=== PATIENT | male | born 1950 | race Caucasian/White ===

== ENCOUNTER 2022-03-08 20:45 | Observation (INO) ==
[2022-03-08 21:14] LABS: Basophils # (auto) 0.01 K/uL (0-0.2); Basophils % (auto) 0.2 %; Eosinophils # (auto) 0.01 K/uL (0-0.50); Eosinophils % (auto) 0.2 %; Hematocrit (blood only) 30.7 % (40.1-51.0); Hemoglobin 10.6 g/dl (14.0-18.0); Immature Granulocytes # (auto) 0.15 K/uL (0.00-0.02); Immature Granulocytes % (auto) 2.3 %; Lymphocytes # (auto) 0.57 K/uL (1.2-3.4); Lymphocytes % (auto) 8.6 %; Mean Corpuscular Hemoglobin 29.7 pg (25.0-34.0); Mean Corpuscular Hgb Conc 34.5 g/dL (32.0-36.0); Mean Platelet Volume 9.2 fL (9.4-12.4); Monocytes # (auto) 1.54 K/uL (0.24-0.82); Monocytes % (auto) 23.1 %; Neutrophils # (auto) 4.38 K/uL (1.4-6.5); Neutrophils % (auto) 65.6 %; Platelet Count 202 K/uL (130-400); RDW Coefficient of Variation 11.9 % (11.5-14.5); RDW Standard Deviation 37.4 fL (36.4-46.3); Red Blood Count 3.57 M/uL (4.63-6.08); White Blood Count 6.66 K/ul (4.8-10.8)
[2022-03-08 21:24] LABS: Partial Thromboplastin Time 27.7 Seconds (21.0-31.0)
[2022-03-08 21:33] LABS: Troponin I High Sensitivity 4.2 pg/ml (0-20)
[2022-03-08 21:36] LABS: Albumin Globulin Ratio 1.1 (0.9-2); Albumin Level 3.9 gm/dl (3.4-5.0); Bilirubin,Total 0.4 mg/dl (0.2-1.0); Calcium 9.8 mg/dl (8.5-10.1); Creatinine Clr Calc Pharmacy 56.8 ml/min; Est GFR (African American) 77.3 ml/min; Est GFR (Non-African American) 66.7 ml/min; Globulin 3.5 gm/dl (2.5-4.0); Potassium 4.3 mmol/L (3.5-5.1); Total Protein 7.4 gm/dl (6.0-8.3)
[2022-03-08] MEDS ORDERED: SODIUM CHLORIDE 0.9% 1000ML 500 ML IV ONE (22:36)
[2022-03-08] MEDS ORDERED: ONDANSETRON INJ 2 MG/ML 2 ML VIAL IV STA (22:36)
[2022-03-08] MEDS ORDERED: MoRPHine SULFATE 4 MG/ML 1 ML CARP\\VIAL IV STA (22:36)
--- NOTE | 2022-03-09 01:50 | Emergency Department Note ---
History of Present Illness General Chief complaint: Back Injury/Pain Time Seen by Provider: 03/08/22 22:26 Source: patient Mode of arrival: EMS Limitations: no limitations History of Present Illness Maximum Pain Intensity: 3 This patient is a 71-year-old male who comes in after having back pain in his mid back in the area. This is his third or fourth visit he has had extensive work-up including CAT scans of his head and neck and CT angio of his head neck and chest. Apparently was more in the neck he said now it settled into the back. He has no significant headache at present he did not think he had a fever although he has a temperature he of 38 1. Denies cough or shortness of breath. No nausea vomiting no abdominal pain it hurts worse when he moves. No numbness or weakness of his legs. No change in bowel or bladder function. Home Medications Medication Instructions Recorded Confirmed Type levothyroxine 125 mcg tablet 62.5 mcg PO QAM 07/28/18 03/09/22 History (Synthroid) cholecalciferol (vitamin D3) 25 1,000 unit PO DAILY 06/03/19 03/09/22 History mcg (1,000 unit) chewable tablet (Vitamin D3) flaxseed oil 1,000 mg capsule 1,000 mg PO DAILY 06/03/19 03/09/22 History garlic 500 mg capsule 500 mg PO DAILY 06/03/19 03/09/22 History lactobacillus combination no.4 3 3 mmu cells PO DAILY 06/03/19 03/09/22 History billion cell capsule (Probiotic) lysine 500 mg tablet (L-Lysine) 500 mg PO DAILY 06/03/19 03/09/22 History multivitamin 1 tab PO DAILY 06/03/19 03/09/22 History vitamin A 2,400 mcg capsule 8,000 unit PO DAILY 06/03/19 03/09/22 History atorvastatin 20 mg tablet 20 mg PO DAILY 11/28/20 03/09/22 History ascorbate calcium (vitamin C) 500 500 mg PO DAILY 02/28/21 03/09/22 History mg tablet melatonin 5 mg capsule 5 mg PO HS PRN Sleep 02/28/21 03/09/22 History naproxen 250 mg tablet 250 mg PO BID PRN Pain 02/28/21 03/09/22 History vitamin B comp and C no.3 15 mg-10 1 cap PO DAILY 02/28/21 03/09/22 History mg-50 mg-5 mg-300 mg capsule (B Complex Plus Vitamin C) leuprolide (3 month) 22.5 mg (3 22.5 mg subcut ONCE Prostate 07/23/21 03/09/22 Rx month) subcutaneous syringe Cancer #1 ea vitamin E (dl, acetate) 180 mg 180 mg PO DAILY 09/11/21 03/09/22 History (400 unit) capsule leuprolide (3 month) 22.5 mg (3 22.5 mg subcut ONCE Prostate 10/09/21 03/09/22 Rx month) subcutaneous syringe Cancer #1 ea (Eligard) oxycodone 5 mg tablet 5 mg PO Q6H PRN pain #12 tabs 03/04/22 03/09/22 Rx cyclobenzaprine 5 mg tablet 5 mg PO TID PRN muscle spasm #9 03/06/22 03/09/22 Rx tabs magnesium chloride 64 mg 64 mg PO DAILY 03/09/22 03/09/22 History (magnesium chloride) tablet,delayed release zinc acetate 50 mg (zinc) capsule 50 mg PO DAILY 03/09/22 03/09/22 History Allergies Allergy/AdvReac Type Severity Reaction Status Date / Time Penicillins Allergy Severe Unknown Verified 03/09/22 07:15 house dust Allergy Intermediate Difficulty Verified 03/09/22 07:15 Breathing shellfish derived Allergy Intermediate HIVES Verified 03/09/22 07:15 cat dander Allergy Unknown Unknown Verified 03/09/22 07:15 Past Med/Surg History Medical History (Updated 03/09/22 @ 04:04 by Jesus Alberto Fletcher MD) Depression Elevated prostate specific antigen (PSA) Hyperlipidemia Hypothyroidism Inguinal hernia Right ureteral calculus Surgical History H/O colonoscopy History of biopsy (01/08/21) Prostate History of left inguinal hernia repair (01/2004) S/P right inguinal hernia repair (01/15/02) Family History Brother , Passed Age 83 Prostate cancer Father , Passed Age 74 Lung cancer Mother , Passed Age 96 No problems noted. Grandmother (Paternal) Colorectal cancer Sister , Passed Age 58 Mesothelioma Sister , Passed Age 57 No problems noted. Sister , Passed Age 84, Unknown Cancer No problems noted. Sister No problems noted. Other Has no children Social History Smoking Status: Current every day smoker Second Hand Exposure: No; Hx Alcohol Use: Yes Alcohol type: beer, wine and hard liquor Alcohol Intake F requency: 4 or More x per/Week Hx Substance Use: No Preferred Language: [place]i Visual Impairment: No Limitations Hearing Ability: Hard of Hearing It Manager Required: No Beliefs That Will Affect Care: None marital status: Current Living Situation: Spouse current occupational status: retired current occupation: Retired How many Children do You have: 0 Feels Safe at Home: Yes Childhood Exposure to Second-Hand Smoke: No caffeine: Yes (coffee daily) during the past year weight has: remained stable Dental Care, Regularly: No Assistive Devices: None Review of Systems A total of 10 systems reviewed and were otherwise negative Physical Exam Vital Signs Vital Signs - 24 hr 03/09/22 02:03 03/09/22 03:03 Temperature 37.1 C Temperature Source Oral Pulse Rate [Finger] 111 H 100 H Pulse Rhythm [Finger] Regular Pulse Strength [Finger] Normal Respiratory Rate 21 20 Respiratory Effort / Characteristics Non-Labored Spontaneous Non-Labored Spontaneous Respiratory Depth Normal Normal Respiratory Pattern Regular Blood Pressure [Right Arm] 174/88 H 134/81 Blood Pressure Mean [Right Arm] 116 98 Pulse Oximetry 91 98 Oxygen Delivery Method Room Air Nasal Cannula Oxygen Flow Rate 2 General: Well developed well nourished older male who appears in no acute distress, breathing comfortably on room air. Normal speech HEENT: Normal cephalic atraumatic. Pupils are equal round and reactive to light. Extraocular movements are intact. Oropharynx is pink with moist mucous membranes. No swelling of the mouth lips or tongue. Neck: Supple with a midline trachea. No meningeal signs or stiffness, no JVD or bruits. No Stridor. Negative Kernig and Brudzinski sign Chest: Clear to auscultation bilaterally. No wheezes or rhonchi. No increased work of breathing. Heart: Regular rate and rhythm without murmurs or gallops. Abdomen: Soft nontender, nondistended without rebound guarding or rigidity. Extremities: No cyanosis clubbing or edema. No calf tenderness or assymetry Spine/Back. He is to palpation in his central mid to upper back. No redness or warmth or rash. No CVA tenderness. Skin: Good turgor without rashes. Neurologic exam: Cranial nerves two through 12 are intact. Motor and sensation are intact and symmetrical throughout. Course Administered Medications Atorvastatin Calcium (Atorvastatin 20 Mg Tab) 20 mg PO DAILY HARSHIL Stop: 04/08/22 09:29 Last Admin: 03/09/22 11:54 Dose: 20 mg Documented By: LORE Cyclobenzaprine HCl (Cyclobenzaprine Hcl 5 Mg Tab) 5 mg PO TID PRN PRN Reason: muscle spasm Stop: 04/08/22 09:29 Last Admin: 03/09/22 14:14 Dose: 5 mg Documented By: LORE Ketorolac Tromethamine (Ketorolac Tromethamine 15 Mg/Ml Vial) 15 mg IV Q6H PRN PRN Reason: Moderate Pain (4-6) Stop: 03/14/22 09:29 Last Admin: 03/09/22 20:16 Dose: 15 mg Documented By: COCO Levothyroxine Sodium (Levothyroxine Sodium 125 Mcg Tablet) 62.5 mcg PO DAILYBB HARSHIL Stop: 04/08/22 09:29 Last Admin: 03/09/22 11:54 Dose: 62.5 mcg Documented By: LORE Discontinued Medications Gadobutrol (Gadobutrol 30ml Vial) 7.8 ml IV ONCE ONE Stop: 03/09/22 02:23 Last Admin: 03/09/22 01:30 Dose: 7.8 ml Documented By: MARK Sodium Chloride (Nss 1000ml) 500 mls @ 999 mls/hr IV .Q31M ONE Stop: 03/08/22 23:06 Last Infusion: 03/08/22 23:35 Dose: 0 mls/hr Documented By: Admin: 03/08/22 22:51 Dose: 999 mls/hr Documented By: WENDIE Ketorolac Tromethamine (Ketorolac Tromethamine 15 Mg/Ml Vial) 10 mg IV NOW ONE Stop: 03/09/22 02:12 Last Admin: 03/09/22 02:22 Dose: 10 mg Documented By: WENDIE Morphine Sulfate (Morphine Sulfate 4 Mg/Ml 1 Ml Carp\Vial) 4 mg IV NOW STA Stop: 03/08/22 22:37 Last Admin: 03/08/22 22:41 Dose: 4 mg Documented By: WENDIE Ondansetron HCl (Ondansetron Inj 2 Mg/Ml 2 Ml Vial) 4 mg IV NOW STA Stop: 03/08/22 22:37 Last Admin: 03/08/22 22:41 Dose: 4 mg Documented By: WENDIE Tramadol HCl (Tramadol Hcl 50 Mg Tablet) 50 mg PO Q4H PRN PRN Reason: Severe Pain Stop: 04/08/22 09:29 Last Admin: 03/09/22 10:53 Dose: 50 mg Documented By: LORE Medical Decision Making Differential Diagnosis Musculoskeletal, degenerative disease, infection, osteomyelitis, discitis, COVID, pneumonia, electrolyte or metabolic abnormality Medical Records Attestation: I reviewed the patient's medical records. Home Medications Current Medication List: was personally reviewed by me Laboratory Data Attestation: I reviewed the patient's lab results. Result diagrams: 03/08/22 20:55 03/08/22 20:55 Lab Results 03/08/22 03/08/22 03/08/22 Range/Units 20:55 20:55 20:55 WBC 6.66 (4.8-10.8) K/ul RBC 3.57 L (4.63-6.08) M/uL Hgb 10.6 L (14.0-18.0) g/dl Hct 30.7 L (40.1-51.0) % MCV 86.0 (80.0-100.0) fL MCH 29.7 (25.0-34.0) pg MCHC 34.5 (32.0-36.0) g/dL RDW Std Deviation 37.4 (36.4-46.3) fL RDW Coeff of Jeannette 11.9 (11.5-14.5) % Plt Count 202 (130-400) K/uL MPV 9.2 L (9.4-12.4) fL Immature Gran % (Auto) 2.3 % Neut % (Auto) 65.6 % Lymph % (Auto) 8.6 % [place] % (Auto) 23.1 % Eos % (Auto) 0.2 % Baso % (Auto) 0.2 % Neut # (Auto) 4.38 (1.4-6.5) K/uL Lymph # (Auto) 0.57 L (1.2-3.4) K/uL [place] # (Auto) 1.54 H (0.24-0.82) K/uL Eos # (Auto) 0.01 (0-0.50) K/uL Baso # (Auto) 0.01 (0-0.2) K/uL Immature Gran # (Auto) 0.15 H (0.00-0.02) K/uL PT 11.0 (9.0-12.0) Seconds INR 1.0 (0.9-1.1) APTT 27.7 (21.0-31.0) Seconds PTT Ratio 1.0 Sodium 134 L (136-145) mmol/L Potassium 4.3 (3.5-5.1) mmol/L Chloride 97 L (98-107) mmol/L Carbon Dioxide 30 (21-32) mmol/L Anion Gap 7 (3-11) BUN 22 (6-23) mg/dl Creatinine 1.10 (0.6-1.4) mg/dl Est Cr Clr Drug Dosing 56.8 ml/min Est GFR ( Amer) 77.3 ml/min Est GFR (Non-Af Amer) 66.7 ml/min BUN/Creatinine Ratio 20.0 (10-20) Glucose 129 H (70-99(Fasting)) mg/dl Lactate (0.4-2.0) mmol/L Calcium 9.8 (8.5-10.1) mg/dl Total Bilirubin 0.4 (0.2-1.0) mg/dl AST 29 (13-39) U/L ALT 36 (7-52) U/L Alkaline Phosphatase 79 (34-104) U/L Troponin I High Sens 4.2 (0-20) pg/ml Total Protein 7.4 (6.0-8.3) gm/dl Albumin 3.9 (3.4-5.0) gm/dl Globulin 3.5 (2.5-4.0) gm/dl Albumin/Globulin Ratio 1.1 (0.9-2) Prostate Specific Ag (0-4) ng/ml TSH (0.300-4.500) uIu/ml Urine Color Urine Appearance (Clear) Urine pH (4.5-7.5) Ur Specific [place] (1.000-1.030) Urine Protein (Negative) Urine Glucose (UA) (Negative) Urine Ketones (Negative) Urine Blood (Negative) Urine Nitrite (Negative) Urine Bilirubin (Negative) Urine Urobilinogen (Negative) Ur Leukocyte Esterase (Negative) SARS-CoV-2, RNA, NAAT (NEGATIVE) 03/08/22 03/08/22 03/08/22 Range/Units 20:55 22:49 23:15 WBC (4.8-10.8) K/ul RBC (4.63-6.08) M/uL Hgb (14.0-18.0) g/dl Hct (40.1-51.0) % MCV (80.0-100.0) fL MCH (25.0-34.0) pg MCHC (32.0-36.0) g/dL RDW Std Deviation (36.4-46.3) fL RDW Coeff of Jeannette (11.5-14.5) % Plt Count (130-400) K/uL MPV (9.4-12.4) fL Immature Gran % (Auto) % Neut % (Auto) % Lymph % (Auto) % [place] % (Auto) % Eos % (Auto) % Baso % (Auto) % Neut # (Auto) (1.4-6.5) K/uL Lymph # (Auto) (1.2-3.4) K/uL [place] # (Auto) (0.24-0.82) K/uL Eos # (Auto) (0-0.50) K/uL Baso # (Auto) (0-0.2) K/uL Immature Gran # (Auto) (0.00-0.02) K/uL PT (9.0-12.0) Seconds INR (0.9-1.1) APTT (21.0-31.0) Seconds PTT Ratio Sodium (136-145) mmol/L Potassium (3.5-5.1) mmol/L Chloride (98-107) mmol/L Carbon Dioxide (21-32) mmol/L Anion Gap (3-11) BUN (6-23) mg/dl Creatinine (0.6-1.4) mg/dl Est Cr Clr Drug Dosing ml/min Est GFR ( Amer) ml/min Est GFR (Non-Af Amer) ml/min BUN/Creatinine Ratio (10-20) Glucose (70-99(Fasting)) mg/dl Lactate 0.5 (0.4-2.0) mmol/L Calcium (8.5-10.1) mg/dl Total Bilirubin (0.2-1.0) mg/dl AST (13-39) U/L ALT (7-52) U/L Alkaline Phosphatase (34-104) U/L Troponin I High Sens (0-20) pg/ml Total Protein (6.0-8.3) gm/dl Albumin (3.4-5.0) gm/dl Globulin (2.5-4.0) gm/dl Albumin/Globulin Ratio (0.9-2) Prostate Specific Ag < 0.008 (0-4) ng/ml TSH 3.837 (0.300-4.500) uIu/ml Urine Color Urine Appearance (Clear) Urine pH (4.5-7.5) Ur Specific [place] (1.000-1.030) Urine Protein (Negative) Urine Glucose (UA) (Negative) Urine Ketones (Negative) Urine Blood (Negative) Urine Nitrite (Negative) Urine Bilirubin (Negative) Urine Urobilinogen (Negative) Ur Leukocyte Esterase (Negative) SARS-CoV-2, RNA, NAAT NEGATIVE (NEGATIVE) 03/09/22 Range/Units 01:58 WBC (4.8-10.8) K/ul RBC (4.63-6.08) M/uL Hgb (14.0-18.0) g/dl Hct (40.1-51.0) % MCV (80.0-100.0) fL MCH (25.0-34.0) pg MCHC (32.0-36.0) g/dL RDW Std Deviation (36.4-46.3) fL RDW Coeff of Jeannette (11.5-14.5) % Plt Count (130-400) K/uL MPV (9.4-12.4) fL Immature Gran % (Auto) % Neut % (Auto) % Lymph % (Auto) % [place] % (Auto) % Eos % (Auto) % Baso % (Auto) % Neut # (Auto) (1.4-6.5) K/uL Lymph # (Auto) (1.2-3.4) K/uL [place] # (Auto) (0.24-0.82) K/uL Eos # (Auto) (0-0.50) K/uL Baso # (Auto) (0-0.2) K/uL Immature Gran # (Auto) (0.00-0.02) K/uL PT (9.0-12.0) Seconds INR (0.9-1.1) APTT (21.0-31.0) Seconds PTT Ratio Sodium (136-145) mmol/L Potassium (3.5-5.1) mmol/L Chloride (98-107) mmol/L Carbon Dioxide (21-32) mmol/L Anion Gap (3-11) BUN (6-23) mg/dl Creatinine (0.6-1.4) mg/dl Est Cr Clr Drug Dosing ml/min Est GFR ( Amer) ml/min Est GFR (Non-Af Amer) ml/min BUN/Creatinine Ratio (10-20) Glucose (70-99(Fasting)) mg/dl Lactate (0.4-2.0) mmol/L Calcium (8.5-10.1) mg/dl Total Bilirubin (0.2-1.0) mg/dl AST (13-39) U/L ALT (7-52) U/L Alkaline Phosphatase (34-104) U/L Troponin I High Sens (0-20) pg/ml Total Protein (6.0-8.3) gm/dl Albumin (3.4-5.0) gm/dl Globulin (2.5-4.0) gm/dl Albumin/Globulin Ratio (0.9-2) Prostate Specific Ag (0-4) ng/ml TSH (0.300-4.500) uIu/ml Urine Color Yellow Urine Appearance Clear (Clear) Urine pH 6.5 (4.5-7.5) Ur Specific [place] 1.020 (1.000-1.030) Urine Protein Negative (Negative) Urine Glucose (UA) Negative (Negative) Urine Ketones Negative (Negative) Urine Blood Negative (Negative) Urine Nitrite Negative (Negative) Urine Bilirubin Negative (Negative) Urine Urobilinogen Negative (Negative) Ur Leukocyte Esterase Negative (Negative) SARS-CoV-2, RNA, NAAT (NEGATIVE) Imaging Data Attestation: I personally reviewed and interpreted this imaging study as follows: My Impression: Chest xraythere are some crowding in the bases more so on the left which could be pneumonia however he is not taking a deep breath. No pneumothorax. ECG Data Attestation: I personally reviewed and interpreted this ECG as follows: Indication: + back/shoulder pain Rate (beats per minute): 111 Rhythm: + sinus tachycardia ECG Intervals/blocks: + Normal QRS, + Normal QT and + Normal MA ECG [place]: + Left axis deviation ECG ST segments: + Normal ST segments ECG Findings: no PACs or no PVCs Comparison ECG Date: from (06/03/19) Change: no significant change Additional Comments: EKG 2: Sinus tachycardia rate of 105. Poor R wave progression. Old inferior infarct. No acute ST segment changes no change compared to EKG #1 MDM Narrative This patient comes in as described above he has been here several times with ba ck or neck pain he has a fever now. Blood work was obtained he has no white count or lactic acid to suggest sepsis is no definite source of fever. He is nursing electrolyte or metabolic abnormality was given IV morphine is feeling much better. Given his continuation of symptoms I did order MRI of the thoracic and cervical spine. Clinically he looks well and I do not suspect meningitis or encephalitis. Morphine and this helped greatly. He has no elevation of his lactic acid or white count. His urinalysis does not suggest a UTI he is noticing electrolyte or metabolic abnormalities EKG x2 does not show any definite ischemic changes. He has no chest pain. Chest x-ray is a poor inspiratory effort but he may have some increased markings in the base. MRI was obtained as well. At this point, it is pending. He was given Toradol and his oxygen was a little on the low side and he is not taking deep breaths he denies that he feels short of breath and has had no cough. It is possible he could have a pneumonia or other pulmonary pathology at this point given his ongoing symptoms and the fact that he has been here 3 times this week and now has a fever I do think may warrant possible admission. I have consulted Dr. Jesus Alberto Fletcher to see him in ER for these measures. Cardiac monitoring: Orders placed in EMR for continuous cardiac monitoring. upon my interpretation patient noted to be in sinus tachycardia with a rate of 100 Impression & Plan Back pain, Lab test negative for COVID-19 virus, Fever Discharge Plan Visit Data Chief Complaint: Back Injury/Pain ED Provider: José Gore Discharge Problem: Back pain, Lab test negative for COVID-19 virus, Fever Patient Disposition: Admitted As Inpatient Discharge Instructions Interventions: ED Discharge Assessment Last Done: 03/09/22 09:04 : Back pain Qualifiers: Back pain location: thoracic back pain Chronicity: acute Back pain laterality: midline Qualified Code(s): M54.6 - Pain in thoracic spine Fever Qualifiers: Fever type: unspecified Qualified Code(s): R50.9 - Fever, unspecified
[2022-03-09] MEDS ORDERED: MoRPHine SULFATE 4 MG/ML 1 ML CARP\\VIAL IV STA (02:08)
[2022-03-09] MEDS ORDERED: KETOROLAC TROMETHAMINE 15 MG/ML VIAL IV ONE (02:11)
[2022-03-09 02:19] LABS: Appearance Urine Clear (Clear); Bilirubin Urine Negative (Negative); Blood Urine Negative (Negative); Color Urine Yellow; Glucose Urine UA Negative (Negative); Ketones Urine Negative (Negative); Leukocyte Esterase Urine Negative (Negative); Nitrite Urine Negative (Negative); Protein Urine Negative (Negative); Urobilinogen Urine Negative (Negative); pH Urine 6.5 (4.5-7.5)
[2022-03-09] MEDS ORDERED: GADOBUTROL 30ML VIAL IV ONE (02:22)
--- NOTE | 2022-03-09 04:00 | History & Physical Report ---
Date of Service March 09, 2022 Assessment & Plan (1) Back pain: Plan: Began after sleeping in recliner in hospital with his . No red flag symptoms. Did have slight, transient fever in ER that spontaneously resolved. - Treat pain with graduated pain meds: * Tylenol * Ketorolac * Tramadol - Cyclobenzaprine PRN - Heat -> If heat not helpful, consider switch to lidocaine patches. Cannot use simultaneously - Relatively low concern for osteomyelitis/discitis or metastatic prostate cancer, but follow up cultures and MRIs (2) Prostate cancer: Plan: Hx of radiation treatment. Fairly aggressive disease with Sami 5 + 4. Radiation therapy in 05/2021. Stopped hormone treatment earlier this year due to side effects (low energy). - Will get PSA this AM - Encouraged f/u with radition oncology or urology (3) Hypothyroidism: Plan: TSH was 2.7 in 2020. No signs/symptoms of hypo-/hyperthyroidism. - Continue home Synthroid 62.5 mcg - Repeat TSH (4) Hyperlipidemia: Plan: - Continue statin (5) DVT prophylaxis: Plan: SCDs, early ambulation and discharge FULL CODE per patient History of Present Illness Primary Care Provider: Lelo Alfaro PA-C 71yo M w/ hx of prostate cancer who presents with back pain. The patient reports the back pain began about 1 week prior. His was hospitalized at [facility] for a broken leg, and while she was there, he was sleeping on a recliner in her room, and reports the pain began after that. The pain started in the upper neck and was a headache, and now is more in the thoracic spine area. He has been to the ER 3 times in the last 3 days. Today, he had a transient fever (38.1) that resolved on its own. The ER provider was concerned about further issues and got an MRI of the thoracic and lumbar spine. The patient reports back pain, but otherwise has no positive symptoms, and in particular denies any red flag back pain symptoms such as numbness, tingling, clumsiness, weakness, saddle anesthesia, or bowel/bladder incontinence. Allergies Allergy/AdvReac Type Severity Reaction Status Date / Time Penicillins Allergy Severe Unknown Verified 09/11/21 13:52 house dust Allergy Intermediate Difficulty Verified 09/11/21 13:52 Breathing shellfish derived Allergy Intermediate HIVES Verified 09/11/21 13:52 cat dander Allergy Unknown Unknown Verified 09/11/21 13:52 Home Medications Medication Instructions Recorded Confirmed Type levothyroxine 125 mcg tablet 62.5 mcg PO QAM 07/28/18 09/11/21 History (Synthroid) cholecalciferol (vitamin D3) 25 1,000 unit PO DAILY 06/03/19 09/11/21 History mcg (1,000 unit) chewable tablet (Vitamin D3) flaxseed oil 1,000 mg capsule 1,000 mg PO DAILY 06/03/19 09/11/21 History garlic 500 mg capsule 500 mg PO DAILY 06/03/19 09/11/21 History lactobacillus combination no.4 3 3 mmu cells PO DAILY 06/03/19 09/11/21 History billion cell capsule (Probiotic) lysine 500 mg tablet (L-Lysine) 500 mg PO DAILY 06/03/19 09/11/21 History multivitamin 1 tab PO DAILY 06/03/19 09/11/21 History vitamin A 2,400 mcg capsule 8,000 unit PO DAILY 06/03/19 09/11/21 History zinc 50 mg tablet 50 mg PO DAILY 06/03/19 09/11/21 History atorvastatin 20 mg tablet 20 mg PO DAILY 11/28/20 09/11/21 History ascorbate calcium (vitamin C) 500 500 mg PO DAILY 02/28/21 09/11/21 History mg tablet melatonin 5 mg capsule 5 mg PO HS PRN Sleep 02/28/21 09/11/21 History naproxen 250 mg tablet 250 mg PO BID PRN Pain 02/28/21 09/11/21 History vitamin B comp and C no.3 15 mg-10 1 cap PO DAILY 02/28/21 09/11/21 History mg-50 mg-5 mg-300 mg capsule (B Complex Plus Vitamin C) magnesium chloride 64 mg 64 mg PO DAILY 05/14/21 09/11/21 History tablet,extended release leuprolide (3 month) 22.5 mg (3 22.5 mg subcut ONCE Prostate 07/23/21 09/11/21 Rx month) subcutaneous syringe Cancer #1 ea vitamin E (dl, acetate) 180 mg 180 mg PO DAILY 09/11/21 09/11/21 History (400 unit) capsule leuprolide (3 month) 22.5 mg (3 22.5 mg subcut ONCE Prostate 04/26/22 Rx month) subcutaneous syringe Cancer #1 ea ([place]) oxycodone 5 mg tablet 5 mg PO Q6H PRN pain #12 tabs 03/04/22 Rx cyclobenzaprine 5 mg tablet 5 mg PO TID PRN muscle spasm #9 03/06/22 Rx tabs Past Med/Surg History Medical History (Updated 03/09/22 @ 04:04 by Jesus Alberto Fletcher MD) Depression Elevated prostate specific antigen (PSA) Hyperlipidemia Hypothyroidism Inguinal hernia Right ureteral calculus Surgical History H/O colonoscopy History of biopsy (01/08/21) Prostate History of left inguinal hernia repair (01/2004) S/P right inguinal hernia repair (01/15/02) Family History Brother , Passed Age 83 Prostate cancer Father , Passed Age 74 Lung cancer Mother , Passed Age 96 No problems noted. Grandmother (Paternal) Colorectal cancer Sister , Passed Age 58 Mesothelioma Sister , Passed Age 57 No problems noted. Sister , Passed Age 84, Unknown Cancer No problems noted. Sister No problems noted. Other Has no children Social History Smoking Status: Never smoker Second Hand Exposure: No; Hx Alcohol Use: Yes (wine every other day 4 oz.) Alcohol type: beer, wine and hard liquor Alcohol Intake Frequency: 4 or More x per/Week Hx Substance Use: No Preferred Language: Korean Visual Impairment: No Limitations Hearing Ability: Hard of Hearing Filling Machine Operator Required: No Beliefs That Will Affect Care: None marital status: Current Living Situation: Spouse current occupational status: retired current occupation: Retired How many Children do You have: 0 Feels Safe at Home: Yes Childhood Exposure to Second-Hand Smoke: No caffeine: Yes (coffee daily) during the past year weight has: remained stable Dental Care, Regularly: No Assistive Devices: Glasses Review of Systems Review of Systems: All systems reviewed & are unremarkable except as noted in HPI & below Physical Exam Constitutional: WD/WN, vitals as above Eyes: EOM intact bilaterally; no conjunctival abnormality ENMT: external ear and nose normal, oropharynx normal Neck: trachea midline, no thyromegaly normal visual inspection Respiratory: normal respiratory effort, lungs clear to auscultation no respiratory distress Cardiovascular: RRR, no murmur, no edema Gastrointestinal (Abdomen): Inspection/Auscultation: abdomen normal to inspection; abdomen not distended Musculoskeletal: no cyanosis or clubbing, extremities motor strength 5/5 Skin: no rashes, warm and dry Neurologic: moves all extremities and awake Psychiatric: Orientation: alert, oriented to person and cooperative Results & Data Results & Data ([facility]) Vital Signs (Past 12 Hours) Vital Signs Temp Pulse Pulse Resp BP BP Pulse Ox 03/09/22 03:03 100 H 20 134/81 98 03/09/22 02:03 37.1 C 111 H 21 174/88 H 91 03/08/22 23:36 106 H 22 144/86 H 92 03/08/22 21:55 38.1 C H 110 H 18 142/88 H 94 03/08/22 20:53 95 03/08/22 20:53 03/08/22 20:46 37.5 C 112 H 22 156/94 H 95 O2 Del Method O2 Flow Rate 03/09/22 03:03 Nasal Cannula 2 03/09/22 02:03 Room Air 03/08/22 23:36 03/08/22 21:55 Room Air 03/08/22 20:53 03/08/22 20:53 Room Air 03/08/22 20:46 Room Air PG Care Time/CCT Total # of Minutes Spent Total Time Spent with Patient: Total time spent is greater than 50% in coordination of care (as documented) at patient's floor/unit and/or counseling patient: Coding Level of Care Code INT OBSERVATION CARE 70M LVL 3 Diagnoses Back pain M54.6 Back pain laterality: midline Back pain location: thoracic back pain Chronicity: acute Prostate cancer C61 Hypothyroidism E03.9 Hyperlipidemia E78.5 DVT prophylaxis Z29.9 (1) Back pain Back pain laterality: midline Back pain location: thoracic back pain Chronicity: acute Qualified Code(s): M54.6 - Pain in thoracic spine
[2022-03-09 04:53] LABS: Prostate SpecificAg Diagnostic < 0.008 ng/ml (0-4)
[2022-03-09 04:57] LABS: Thyroid Stimulating Hormone 3.837 uIu/ml (0.300-4.500)
--- NOTE | 2022-03-09 08:51 | XRay Report ---
XR chest 1V portable HISTORY: 71 years-old Male fever acute cough with fever COMPARISON: Chest radiograph 03/04/2022 TECHNIQUE: Portable AP view of the chest FINDINGS: Cardiac silhouette is enlarged. There are new bibasilar airspace opacities. No pneumothorax. Question trace pleural effusions. No overt pulmonary edema. Mild pulmonary vascular congestion. Degenerative changes of the shoulders and spine. IMPRESSION: 1. Cardiomegaly with pulmonary vascular congestion. 2. There are new bibasilar airspace opacities, left greater than right suspicious for pneumonia. ACT 112: Negative or not required by law. The above report was generated using voice recognition software. It may contain grammatical, syntax o r spelling errors. Electronically signed by: Mike Jimenez M.D. 03/09/2022 8:50 AM
--- NOTE | 2022-03-09 09:14 | Magnetic Resonance Report ---
MR lumbar spine wo/w con CLINICAL HISTORY: 71 years-old Male with pain with fever, eval for infection. Acute low back pain wi th fever. History of prostate cancer. COMPARISON: MRI thoracic spine of same day, CT abdomen and pelvis and bone scan 03/12/2021 TECHNIQUE: Multiplanar, multi sequence MRI of the lumbar spine was performed without intravenous cont rast. FINDINGS: Transportation Engineer localizer images demonstrate no gross extraspinal abnormality. No abnormal enhancement. There a re a few scattered nonenlarged periaortic retroperitoneal lymph nodes present. The study is motion de graded. No acute fracture, subluxation or endplate erosion. There is mild paraspinal edema of the mid to lower lumbar spinal the right which may represent a low-grade muscle strain. Urinary bladder is d istended. Conus medullaris terminates at T12-L1. Normal signal within the thoracic spinal cord. No en dplate erosions. Small inferior endplate Schmorl's node at L2 with mild marrow edema. T12-L1: Mild intervertebral disc space narrowing with spondylitic spurring and small circumferential annular disc bulge. Ligamentum flavum thickening with moderate facet arthrosis. No central canal or neural foraminal stenosis. L1-L2: Mild intervertebral disc space narrowing with spondylitic spurring and small circumferential annular disc bulge. Ligament of flavum thickening with moderate facet arthrosis. No central canal neyda nosis. Mild bilateral foraminal stenosis.. L2-L3: Mild spondylitic spurring with small circumferential annular disc bulge. Ligamentum flavum th ickening with moderate facet arthrosis. The central canal is patent. Mild bilateral neural foraminal stenosis. L3-L4: Mild intervertebral disc space narrowing with small circumferential annular disc bulge and sp ondylitic spurring. Ligamentum flavum thickening with moderate facet arthrosis. Mild central canal st enosis, AP dimension of the thecal sac measuring 9 mm. Mild to moderate bilateral foraminal stenosis. L4-L5: Ieih-ci-izkighgl intervertebral disc space narrowing with spondylitic spurring and small circ umferential annular disc bulge. Small annular fissure centrally. 7 mm anterolisthesis with posterior disc space uncovering. Ligamentum flavum thickening with severe facet arthrosis. Severe central canal stenosis, AP dimension of the thecal sac measuring 5 mm. Severe narrowing of the lateral recesses. M oderate bilateral neural foraminal narrowing. L5-S1: Mild intervertebral disc space narrowing. Spondylitic spurring with small central disc protru sloan measuring 8 mm transversely. Small annular fissure. Flattening of the ventral thecal sac without significant central canal stenosis. The neural foramen are patent. Ligamentum flavum thickening with moderate facet arthrosis. IMPRESSION: 1. No acute fracture or evidence of discitis/osteomyelitis. 2. Small acute to subacute appearing Schmorl's node within the inferior endplate of L2. 3. Discogenic degeneration with facet arthrosis as above resulting in multilevel neural foraminal barbara rowing. 4. Severe central canal stenosis at L4-L5. 5. No abnormal enhancement. 6. Mild edema within the lower paraspinal musculature may represent a grade 1 muscle strain. ACT 112: Negative or not required by law. The above report was generated using voice recognition software. It may contain grammatical, syntax o r spelling errors. Electronically signed by: Mike Jimenez M.D. 03/09/2022 9:11 AM
--- NOTE | 2022-03-09 09:28 | Magnetic Resonance Report ---
MR thoracic spine wo/w con HISTORY: 71 years-old Male eval for infection acute back pain with fever COMPARISON: MRI lumbar spine of same day, bone scan 03/12/2021 TECHNIQUE: Multiplanar multisequence MRI of the thoracic spine was obtained both with and without use of 7.8 cc Gadavist FINDINGS: There is mostly mild multilevel intervertebral disc space narrowing with spondylitic spurring and sma ll annular disc bulging throughout the thoracic spine. Posterior disc bulge with possible disc extrus ion at T8-T9 narrows the AP dimension of the thecal sac to 9 mm causing mild central canal stenosis. Conus medullaris terminates at T12/L1. The central canal is otherwise patent. No high-grade neural fo raminal narrowing identified. No acute fracture, subluxation or endplate erosion identified. The stud y is motion degraded. There is extensive soft tissue edema and enhancement within the deep paraspinal tissues of the upper to midthoracic spine extending into the interspinous tissues. These findings extend to the level of T 1-T7 and are most pronounced at the T1-T4 levels. Additionally, there is enhancement of the posterior epidural tissues within this distribution. No epidural or paraspinal abscess identified. Dependent i ncreased signal within lung bases suggest atelectasis versus pneumonia. Trace right pleural effusion. IMPRESSION: 1. Motion degraded exam. 2. There is a considerable amount of nonspecific deep tissue paraspinal and interspinous edema and en hancement involving the upper to midthoracic spine extending from T1-T7 with edema and enhancement al so present within the posterior epidural tissues extending into the upper thoracic bilateral neural f oramen. No epidural or paraspinal abscess identified. Follow-up is needed. 3. No acute fracture, bone marrow edema or marrow replacing process identified. 4. No evidence of discitis/osteomyelitis. 5. Bibasilar atelectasis versus pneumonia. Trace right pleural effusion. ACT 112: Negative or not required by law. The above report was generated using voice recognition software. It may contain grammatical, syntax o r spelling errors. Electronically signed by: Mike Jimenez M.D. 03/09/2022 9:26 AM
[2022-03-09] MEDS ORDERED: ACETAMINOPHEN 325 MG TAB PO PRN (09:30)
[2022-03-09] MEDS ORDERED: ONDANSETRON INJ 2 MG/ML 2 ML VIAL IV PRN (09:30)
[2022-03-09] MEDS ORDERED: traMADol HCL 50 MG TABLET PO PRN ×2 (09:30→20:06)
[2022-03-09] MEDS ORDERED: CYCLOBENZAPRINE HCL 5 MG TAB PO PRN (09:30)
[2022-03-09] MEDS ORDERED: KETOROLAC TROMETHAMINE 15 MG/ML VIAL IV PRN ×2 (09:30→20:06)
--- NOTE | 2022-03-09 11:05 | Hospitalist Progress Note ---
Date of Service March 09, 2022 Assessment & Plan (1) Back pain: Plan: 71yo male with PMHx of prostate cancer, hypothyroidism, HLD who presented with 1wk back pain. Has been to our ER 2-3x in the past few days. His is currently at [facility] for treatment of leg fracture with infection. Cervical/Thoracic Back Pain -Pt states pain began after sleeping in recliner of hospital with his at [facility] last week. No red flag symptoms. Did have slight, transient fever in ER that spontaneously resolved. Relatively low concern for osteomyelitis/discitis or metastatic prostate cancer -urine cx: +gamma strep not enterococcus; likely normal all, asymptomatic -blood cx pending -Chest XR: new bibasilar airspace opacities -Thoracic MRI: No epidural or paraspinal abscess. No acute fx. No discitis/osteomyelitis. Bibasilar atelectasis versus pneumonia with trace R pleural effusion. Considerable amount of nonspecific deep tissue paraspinal and interspinous edema and enhancement involving the upper to midthoracic spine extending from T1-T7 with edema and enhancement also present within the posterior epidural tissues extending into the upper thoracic bilateral neural foramen. -Lumbar MRI: No acute fx or evidence of discitis/osteomyelitis. Multilevel neural foraminal narrowing. Severe central canal stenosis at L4-L5. Grade 1 muscle strain. -Treat pain with graduated pain meds: * Tylenol * Ketorolac * Tramadol -Cyclobenzaprine PRN, heat; consider switching from heat to lidocaine patches if pain not controlled. -consult spine surgery for input. suspect likely from trauma. patient denies. Prostate Cancer Hx of radiation treatment. Fairly aggressive disease with Donovan 5 + 4. Radiation therapy in 05/2021. Stopped hormone treatment earlier this year due to side effects (low energy). - repeat PSA wnl - Encouraged f/u with radiation oncology or urology Hypothyroidism TSH was 2.7 in 2020. No signs/symptoms of hypo-/hyperthyroidism. - Repeat TSH wnl - Continue home Synthroid 62.5 mcg HLD - Continue home statin DVT ppx: SCDs FEN/GI: regular Code Status: Full Dispo: med surg (2) Prostate cancer: (3) Hypothyroidism: (4) Hyperlipidemia: (5) DVT prophylaxis: Admission and Anticipated Discharge Date Admission Date: March 09, 2022 Subjective Patient seen at bedside this morning. Pain location currently near mid thoracic region. Pain improved since arrival in ED. Says the muscle relaxer + oxycodone at home did not help much. Some difficulty with deep inspiration secondary to pain otherwise no sob. Denies chest pain, abd pain, N/V, constipation, diarrhea, recent injury, headache, vision changes, lightheadedness, dizziness. Review of Systems Review of Systems: All systems reviewed & are unremarkable except as noted in HPI & below Physical Exam Physical Exam: Constitutional: WD/WN, in no acute distress, pleasant. Vitals as above. HEENT: Moist mucous membranes. Neck: Supple without lymphadenopathy. Trachea midline. Lungs: Diminished bibasilar sounds otherwise CTAB. Limited inspirations secondary to pain. Cardiac: RRR.No murmurs. Abdomen: +BS. Soft, nontender, and nondistended.No guarding or rebound tenderness. No hepatosplenomegaly. MSK: Moves all extremities. Mild tenderness upper thoracic paraspinals and midline. Extremities motor strength 5/5 Skin: No rashes, warm, dry. Neurologic: No focal deficits. Results & Data Results & Data ([facility]) Vital Signs (Past 12 Hours) Vital Signs Temp Pulse Resp BP Pulse Ox O2 Del Method O2 Flow Rate 03/09/22 09:21 37.1 C 90 16 163/83 H 100 Room Air 03/09/22 08:00 93 H 22 139/92 99 03/09/22 07:30 87 22 129/86 97 03/09/22 06:30 90 16 139/84 99 03/09/22 05:30 88 18 129/87 95 03/09/22 04:30 92 H 20 118/78 96 Nasal Cannula 2 03/09/22 03:03 100 H 20 134/81 98 Nasal Cannula 2 03/09/22 02:03 37.1 C 111 H 21 174/88 H 91 Room Air 03/08/22 23:36 106 H 22 144/86 H 92 Laboratory Results 03/09/22 03/09/22 03/09/22 Range/Units 10:32 10:32 01:58 WBC (4.8-10.8) K/ul RBC (4.63-6.08) M/uL Hgb (14.0-18.0) g/dl Hct (40.1-51.0) % MCV (80.0-100.0) fL MCH (25.0-34.0) pg MCHC (32.0-36.0) g/dL RDW Std Deviation (36.4-46.3) fL RDW Coeff of Jeannette (11.5-14.5) % Plt Count (130-400) K/uL MPV (9.4-12.4) fL Immature Gran % (Auto) % Neut % (Auto) % Lymph % (Auto) % Sharkey % (Auto) % Eos % (Auto) % Baso % (Auto) % Neut # (Auto) (1.4-6.5) K/uL Lymph # (Auto) (1.2-3.4) K/uL Sharkey # (Auto) (0.24-0.82) K/uL Eos # (Auto) (0-0.50) K/uL Baso # (Auto) (0-0.2) K/uL Immature Gran # (Auto) (0.00-0.02) K/uL PT (9.0-12.0) Seconds INR (0.9-1.1) APTT (21.0-31.0) Seconds PTT Ratio Sodium (136-145) mmol/L Potassium (3.5-5.1) mmol/L Chloride (98-107) mmol/L Carbon Dioxide (21-32) mmol/L Anion Gap (3-11) BUN (6-23) mg/dl Creatinine (0.6-1.4) mg/dl Est Cr Clr Drug Dosing ml/min Est GFR ( Amer) ml/min Est GFR (Non-Af Amer) ml/min BUN/Creatinine Ratio (10-20) Glucose (70-99(Fasting)) mg/dl Lactate (0.4-2.0) mmol/L Calcium (8.5-10.1) mg/dl Total Bilirubin (0.2-1.0) mg/dl AST (13-39) U/L ALT (7-52) U/L Alkaline Phosphatase (34-104) U/L Troponin I High Sens (0-20) pg/ml C-Reactive Protein 17.40 H (0-0.5) mg/dl Total Protein (6.0-8.3) gm/dl Albumin (3.4-5.0) gm/dl Globulin (2.5-4.0) gm/dl Albumin/Globulin Ratio (0.9-2) Prostate Specific Ag (0-4) ng/ml Procalcitonin Pending TSH (0.300-4.500) uIu/ml Urine Color Yellow Urine Appearance Clear (Clear) Urine pH 6.5 (4.5-7.5) Ur Specific [place] 1.020 (1.000-1.030) Urine Protein Negative (Negative) Urine Glucose (UA) Negative (Negative) Urine Ketones Negative (Negative) Urine Blood Negative (Negative) Urine Nitrite Negative (Negative) Urine Bilirubin Negative (Negative) Urine Urobilinogen Negative (Negative) Ur Leukocyte Esterase Negative (Negative) SARS-CoV-2, RNA, NAAT (NEGATIVE) 03/08/22 03/08/22 03/08/22 Range/Units 23:15 22:49 20:55 WBC (4.8-10.8) K/ul RBC (4.63-6.08) M/uL Hgb (14.0-18.0) g/dl Hct (40.1-51.0) % MCV (80.0-100.0) fL MCH (25.0-34.0) pg MCHC (32.0-36.0) g/dL RDW Std Deviation (36.4-46.3) fL RDW Coeff of Jeannette (11.5-14.5) % Plt Count (130-400) K/uL MPV (9.4-12.4) fL Immature Gran % (Auto) % Neut % (Auto) % Lymph % (Auto) % Sharkey % (Auto) % Eos % (Auto) % Baso % (Auto) % Neut # (Auto) (1.4-6.5) K/uL Lymph # (Auto) (1.2-3.4) K/uL Sharkey # (Auto) (0.24-0.82) K/uL Eos # (Auto) (0-0.50) K/uL Baso # (Auto) (0-0.2) K/uL Immature Gran # (Auto) (0.00-0.02) K/uL PT (9.0-12.0) Seconds INR (0.9-1.1) APTT (21.0-31.0) Seconds PTT Ratio Sodium (136-145) mmol/L Potassium (3.5-5.1) mmol/L Chloride (98-107) mmol/L Carbon Dioxide (21-32) mmol/L Anion Gap (3-11) BUN (6-23) mg/dl Creatinine (0.6-1.4) mg/dl Est Cr Clr Drug Dosing ml/min Est GFR ( Amer) ml/min Est GFR (Non-Af Amer) ml/min BUN/Creatinine Ratio (10-20) Glucose (70-99(Fasting)) mg/dl Lactate 0.5 (0.4-2.0) mmol/L Calcium (8.5-10.1) mg/dl Total Bilirubin (0.2-1.0) mg/dl AST (13-39) U/L ALT (7-52) U/L Alkaline Phosphatase (34-104) U/L Troponin I High Sens (0-20) pg/ml C-Reactive Protein (0-0.5) mg/dl Total Protein (6.0-8.3) gm/dl Albumin (3.4-5.0) gm/dl Globulin (2.5-4.0) gm/dl Albumin/Globulin Ratio (0.9-2) Prostate Specific Ag < 0.008 (0-4) ng/ml Procalcitonin TSH 3.837 (0.300-4.500) uIu/ml Urine Color Urine Appearance (Clear) Urine pH (4.5-7.5) Ur Specific [place] (1.000-1.030) Urine Protein (Negative) Urine Glucose (UA) (Negative) Urine Ketones (Negative) Urine Blood (Negative) Urine Nitrite (Negative) Urine Bilirubin (Negative) Urine Urobilinogen (Negative) Ur Leukocyte Esterase (Negative) SARS-CoV-2, RNA, NAAT NEGATIVE (NEGATIVE) 03/08/22 03/08/22 03/08/22 Range/Units 20:55 20:55 20:55 WBC 6.66 (4.8-10.8) K/ul RBC 3.57 L (4.63-6.08) M/uL Hgb 10.6 L (14.0-18.0) g/dl Hct 30.7 L (40.1-51.0) % MCV 86.0 (80.0-100.0) fL MCH 29.7 (25.0-34.0) pg MCHC 34.5 (32.0-36.0) g/dL RDW Std Deviation 37.4 (36.4-46.3) fL RDW Coeff of Jeannette 11.9 (11.5-14.5) % Plt Count 202 (130-400) K/uL MPV 9.2 L (9.4-12.4) fL Immature Gran % (Auto) 2.3 % Neut % (Auto) 65.6 % Lymph % (Auto) 8.6 % Sharkey % (Auto) 23.1 % Eos % (Auto) 0.2 % Baso % (Auto) 0.2 % Neut # (Auto) 4.38 (1.4-6.5) K/uL Lymph # (Auto) 0.57 L (1.2-3.4) K/uL Sharkey # (Auto) 1.54 H (0.24-0.82) K/uL Eos # (Auto) 0.01 (0-0.50) K/uL Baso # (Auto) 0.01 (0-0.2) K/uL Immature Gran # (Auto) 0.15 H (0.00-0.02) K/uL PT 11.0 (9.0-12.0) Seconds INR 1.0 (0.9-1.1) APTT 27.7 (21.0-31.0) Seconds PTT Ratio 1.0 Sodium 134 L (136-145) mmol/L Potassium 4.3 (3.5-5.1) mmol/L Chloride 97 L (98-107) mmol/L Carbon Dioxide 30 (21-32) mmol/L Anion Gap 7 (3-11) BUN 22 (6-23) mg/dl Creatinine 1.10 (0.6-1.4) mg/dl Est Cr Clr Drug Dosing 56.8 ml/min Est GFR ( Amer) 77.3 ml/min Est GFR (Non-Af Amer) 66.7 ml/min BUN/Creatinine Ratio 20.0 (10-20) Glucose 129 H (70-99(Fasting)) mg/dl Lactate (0.4-2.0) mmol/L Calcium 9.8 (8.5-10.1) mg/dl Total Bilirubin 0.4 (0.2-1.0) mg/dl AST 29 (13-39) U/L ALT 36 (7-52) U/L Alkaline Phosphatase 79 (34-104) U/L Troponin I High Sens 4.2 (0-20) pg/ml C-Reactive Protein (0-0.5) mg/dl Total Protein 7.4 (6.0-8.3) gm/dl Albumin 3.9 (3.4-5.0) gm/dl Globulin 3.5 (2.5-4.0) gm/dl Albumin/Globulin Ratio 1.1 (0.9-2) Prostate Specific Ag (0-4) ng/ml Procalcitonin TSH (0.300-4.500) uIu/ml Urine Color Urine Appearance (Clear) Urine pH (4.5-7.5) Ur Specific [place] (1.000-1.030) Urine Protein (Negative) Urine Glucose (UA) (Negative) Urine Ketones (Negative) Urine Blood (Negative) Urine Nitrite (Negative) Urine Bilirubin (Negative) Urine Urobilinogen (Negative) Ur Leukocyte Esterase (Negative) SARS-CoV-2, RNA, NAAT (NEGATIVE) Resident Activity Tracking Resident Involvement: Resident Care Provided Care Provided: Adult Hospital Medicine (1) Back pain Back pain laterality: midline Back pain location: thoracic back pain Chronicity: acute Qualified Code(s): M54.6 - Pain in thoracic spine
[2022-03-09] MEDS: LEVOTHYROXINE SODIUM 125 MCG TABLET PO SCH (11:54)
[2022-03-09] MEDS: ATORVASTATIN 20 MG TAB PO SCH (11:54)
[2022-03-09] MEDS ORDERED: ACETAMINOPHEN 500 MG TAB PO PRN (20:06)
--- NOTE | 2022-03-09 22:41 | Electrocardiogram Report ---
Test Reason : Blood Pressure : / mmHG Vent. Rate : 105 BPM Atrial Rate : 105 BPM P-R Int : 150 ms QRS Dur : 082 ms QT Int : 316 ms P-R-T Axes : 043 -47 027 degrees QTc Int : 417 ms Sinus tachycardia Possible Left atrial enlargement Left axis deviation Low voltage QRS Inferior infarct (cited on or before 03-JUN-2019) Cannot rule out Anterior infarct (cited on or before 03-JUN-2019) Abnormal ECG When compared with ECG of 08-MAR-2022 20:52, No significant change was found Confirmed by Jake Edmonds ([id number]) on 03/09/2022 10:41:36 PM Referred By: REFERRED SELF Confirmed By:Jake Edmonds
[2022-03-10] MEDS: LEVOTHYROXINE SODIUM 125 MCG TABLET PO SCH (05:47)
--- NOTE | 2022-03-10 07:02 | Hospitalist Progress Note ---
Date of Service March 10, 2022 Assessment & Plan (1) Back pain: Plan: 71yo male with PMHx of prostate cancer, hypothyroidism, HLD who presented with 1wk back pain. Has been to our ER 2-3x in the past few days. His is currently at [facility] for treatment of leg fracture with infection. Cervical/Thoracic Back Pain -Pt states pain began after sleeping in recliner of hospital with his at [facility] last week. No red flag symptoms. Did have slight, transient fever in ER that spontaneously resolved. Relatively low concern for osteomyelitis/discitis or metastatic prostate cancer -urine cx: +gamma strep not enterococcus; likely normal all, asymptomatic -blood cx pending -Chest XR: new bibasilar airspace opacities -Thoracic MRI: No epidural or paraspinal abscess. No acute fx. No discitis/osteomyelitis. Bibasilar atelectasis versus pneumonia with trace R pleural effusion. Considerable amount of nonspecific deep tissue paraspinal and interspinous edema and enhancement involving the upper to midthoracic spine extending from T1-T7 with edema and enhancement also present within the posterior epidural tissues extending into the upper thoracic bilateral neural foramen. -Lumbar MRI: No acute fx or evidence of discitis/osteomyelitis. Multilevel neural foraminal narrowing. Severe central canal stenosis at L4-L5. Grade 1 muscle strain. -Treat pain with graduated pain meds: * Tylenol * Ketorolac * Tramadol -Cyclobenzaprine PRN, heat; consider switching from heat to lidocaine patches if pain not controlled. -consult spine surgery for input. suspect likely from trauma. patient denies. Prostate Cancer Hx of radiation treatment. Fairly aggressive disease with Gallagher 5 + 4. Radiation therapy in 05/2021. Stopped hormone treatment earlier this year due to side effects (low energy). - repeat PSA wnl - Encouraged f/u with radiation oncology or urology Hypothyroidism TSH was 2.7 in 2020. No signs/symptoms of hypo-/hyperthyroidism. - Repeat TSH wnl - Continue home Synthroid 62.5 mcg HLD - Continue home statin DVT ppx: SCDs FEN/GI: regular Code Status: Full Dispo: med surg (2) Prostate cancer: (3) Hypothyroidism: (4) Hyperlipidemia: (5) DVT prophylaxis: Admission and Anticipated Discharge Date Admission Date: March 09, 2022 Subjective Patient seen at bedside this morning. Pain location currently near mid thoracic region. Pain improved since arrival in ED. Says the muscle relaxer + oxycodone at home did not help much. Some difficulty with deep inspiration secondary to pain otherwise no sob. Denies chest pain, abd pain, N/V, constipation, diarrhea, recent injury, headache, vision changes, lightheadedness, dizziness. Review of Systems Review of Systems: All systems reviewed & are unremarkable except as noted in HPI & below Physical Exam Physical Exam: Constitutional: WD/WN, in no acute distress, pleasant. Vitals as above. HEENT: Moist mucous membranes. Neck: Supple without lymphadenopathy. Trachea midline. Lungs: Diminished bibasilar sounds otherwise CTAB. Limited inspirations secondary to pain. Cardiac: RRR.No murmurs. Abdomen: +BS. Soft, nontender, and nondistended.No guarding or rebound tenderness. No hepatosplenomegaly. MSK: Moves all extremities. Mild tenderness upper thoracic paraspinals and midline. Extremities motor strength 5/5 Skin: No rashes, warm, dry. Neurologic: No focal deficits. Results & Data Results & Data ([facility]) Vital Signs (Past 12 Hours) Vital Signs Temp Pulse Resp BP Pulse Ox O2 Del Method 03/09/22 23:11 37 C 95 H 17 139/86 93 Room Air 03/09/22 20:02 37.9 C H 102 H 16 147/81 H 92 Room Air (1) Back pain Back pain laterality: midline Back pain location: thoracic back pain Chronicity: acute Qualified Code(s): M54.6 - Pain in thoracic spine
[2022-03-10] MEDS: ATORVASTATIN 20 MG TAB PO SCH (09:20)
--- NOTE | 2022-03-10 10:21 | Orthopedic Consultation ---
Date of Consultation March 10, 2022 Assessment & Plan (1) Cervical muscle strain: Assessment cervical thoracic sprain strain. Plan at this time would like discussion today with patient reviewing his MRI imaging and clinical progress. He does have evidence of grade 1 spondylolisthesis and spinal stenosis of the lumbar region. He denies any neurogenic claudicatory complaints. I have described to him that if he begins having symptoms in his legs he should notify us and begin work-up. At this time from my standpoint he is safe for return home. History of Present Illness Reason for Consultation: Back pain Attending Physician: Charlene Morales MD History of Present Illness This is a 69-year-old male who presents yesterday to the emergency room with back pain. Imaging did demonstrate evidence of edema at the cervical thoracic junction. He denies any specific trauma fall or event however he is a primary caregiver for his . He does describe having to help her with transitions and often having to hold her during these changes of position. She is currently hospitalized for a femur fracture that was occurred recently at home. At this time he denies any numbness or tingling upper lower extremities. Denies any strength deficits. Allergies Allergy/AdvReac Type Severity Reaction Status Date / Time Penicillins Allergy Severe Unknown Verified 03/09/22 07:15 house dust Allergy Intermediate Difficulty Verified 03/09/22 07:15 Breathing shellfish derived Allergy Intermediate HIVES Verified 03/09/22 07:15 cat dander Allergy Unknown Unknown Verified 03/09/22 07:15 Home Medications Medication Instructions Recorded Confirmed Type levothyroxine 125 mcg tablet 62.5 mcg PO QAM 07/28/18 03/09/22 History (Synthroid) cholecalciferol (vitamin D3) 25 1,000 unit PO DAILY 06/03/19 03/09/22 History mcg (1,000 unit) chewable tablet (Vitamin D3) flaxseed oil 1,000 mg capsule 1,000 mg PO DAILY 06/03/19 03/09/22 History garlic 500 mg capsule 500 mg PO DAILY 06/03/19 03/09/22 History lactobacillus combination no.4 3 3 mmu cells PO DAILY 06/03/19 03/09/22 History billion cell capsule (Probiotic) lysine 500 mg tablet (L-Lysine) 500 mg PO DAILY 06/03/19 03/09/22 History multivitamin 1 tab PO DAILY 06/03/19 03/09/22 History vitamin A 2,400 mcg capsule 8,000 unit PO DAILY 06/03/19 03/09/22 History atorvastatin 20 mg tablet 20 mg PO DAILY 11/28/20 03/09/22 History ascorbate calcium (vitamin C) 500 500 mg PO DAILY 02/28/21 03/09/22 History mg tablet melatonin 5 mg capsule 5 mg PO HS PRN Sleep 02/28/21 03/09/22 History naproxen 250 mg tablet 250 mg PO BID PRN Pain 02/28/21 03/09/22 History vitamin B comp and C no.3 15 mg-10 1 cap PO DAILY 02/28/21 03/09/22 History mg-50 mg-5 mg-300 mg capsule (B Complex Plus Vitamin C) leuprolide (3 month) 22.5 mg (3 22.5 mg subcut ONCE Prostate 07/23/21 03/09/22 Rx month) subcutaneous syringe Cancer #1 ea vitamin E (dl, acetate) 180 mg 180 mg PO DAILY 09/11/21 03/09/22 History (400 unit) capsule leuprolide (3 month) 22.5 mg (3 22.5 mg subcut ONCE Prostate 10/09/21 03/09/22 Rx month) subcutaneous syringe Cancer #1 ea (Eligard) oxycodone 5 mg tablet 5 mg PO Q6H PRN pain #12 tabs 03/04/22 03/09/22 Rx cyclobenzaprine 5 mg tablet 5 mg PO TID PRN muscle spasm #9 03/06/22 03/09/22 Rx tabs magnesium chloride 64 mg 64 mg PO DAILY 03/09/22 03/09/22 History (magnesium chloride) tablet,delayed release zinc acetate 50 mg (zinc) capsule 50 mg PO DAILY 03/09/22 03/09/22 History Patient History Medical History (Updated 03/09/22 @ 04:04 by Jesus Alberto Fletcher MD) Depression Elevated prostate specific antigen (PSA) Hyperlipidemia Hypothyroidism Inguinal hernia Right ureteral calculus Surgical History H/O colonoscopy History of biopsy (01/08/21) Prostate History of left inguinal hernia repair (01/2004) S/P right inguinal hernia repair (01/15/02) Family History Brother , Passed Age 83 Prostate cancer Father , Passed Age 74 Lung cancer Mother , Passed Age 96 No problems noted. Grandmother (Paternal) Colorectal cancer Sister , Passed Age 58 Mesothelioma Sister , Passed Age 57 No problems noted. Sister , Passed Age 84, Unknown Cancer No problems noted. Sister No problems noted. Other Has no children Social History Smoking Status: Current every day smoker Second Hand Exposure: No; Hx Alcohol Use: Yes Alcohol type: beer, wine and hard liquor Alcohol Intake Frequency: 4 or More x per/Week Hx Substance Use: No Preferred Language: Occitan Visual Impairment: No Limitations Hearing Ability: Hard of Hearing 3Rd Grade Teacher Required: No Beliefs That Will Affect Care: None marital status: Current Living Situation: Spouse current occupational status: retired current occupation: Retired How many Children do You have: 0 Feels Safe at Home: Yes Childhood Exposure to Second-Hand Smoke: No caffeine: Yes (coffee daily) during the past year weight has: remained stable Dental Care, Regularly: No Assistive Devices: None Physical Exam Physical Exam: On exam he is alert and oriented. He is comfortable. Is able to sit up without difficulty. He has no pain to palpation or percussion of the thoracolumbar cervical thoracic region. There is no abnormal skin markings. No erythema. Is eccentric to testing. Results & Data ([facility]) Vital Signs (Past 12 Hours) Vital Signs Temp Pulse Resp BP Pulse Ox O2 Del Method 03/10/22 08:15 36.6 C 83 20 153/91 H 96 Room Air 03/09/22 23:11 37 C 95 H 17 139/86 93 Room Air
--- NOTE | 2022-03-10 10:28 | Discharge Summary ---
Date of Service March 10, 2022 Admission HPI Per Admitting Provider 71yo M w/ hx of prostate cancer who presents with back pain. The patient reports the back pain began about 1 week prior. His was hospitalized at [facility] for a broken leg, and while she was there, he was sleeping on a recliner in her room, and reports the pain began after that. The pain started in the upper neck and was a headache, and now is more in the thoracic spine area. He has been to the ER 3 times in the last 3 days. Today, he had a transient fever (38.1) that resolved on its own. The ER provider was concerned about further issues and got an MRI of the thoracic and lumbar spine. The patient reports back pain, but otherwise has no positive symptoms, and in particular denies any red flag back pain symptoms such as numbness, tingling, clumsiness, weakness, saddle anesthesia, or bowel/bladder inc ontinence. Principal Diagnosis cervical/thoracic muscle strain Discharge Exam Constitutional: WD/WN, in no acute distress, pleasant. Vitals as above. HEENT: Moist mucous membranes. Neck: Supple without lymphadenopathy. Trachea midline. Lungs: CTAB. No increased work of breathing or accessory muscle use. Cardiac: RRR.No murmurs. Abdomen: +BS. Soft, nontender, and nondistended.No guarding or rebound tenderness. No hepatosplenomegaly. MSK: Moves all extremities. Mild tenderness upper thoracic paraspinals and midline. Extremities motor strength 5/5 Skin: No rashes, warm, dry. Neurologic:No focal deficits. Discharge Data Allergies Allergy/AdvReac Type Severity Reaction Status Date / Time Penicillins Allergy Severe Unknown Verified 03/09/22 07:15 house dust Allergy Intermediate Difficulty Verified 03/09/22 07:15 Breathing shellfish derived Allergy Intermediate HIVES Verified 03/09/22 07:15 cat dander Allergy Unknown Unknown Verified 03/09/22 07:15 Consultations 03/09/22 02:57 ED Decision to Admit Stat 03/09/22 17:17 Consult Orthopedic Surgery Routine Ordered Studies Laboratory Results WBC 6.66 K/ul (4.8-10.8) 03/08/22 20:55 RBC 3.57 M/uL (4.63-6.08) L 03/08/22 20:55 Hgb 10.6 g/dl (14.0-18.0) L 03/08/22 20:55 Hct 30.7 % (40.1-51.0) L 03/08/22 20:55 MCV 86.0 fL (80.0-100.0) 03/08/22 20:55 MCH 29.7 pg (25.0-34.0) 03/08/22 20:55 MCHC 34.5 g/dL (32.0-36.0) 03/08/22 20:55 RDW Std Deviation 37.4 fL (36.4-46.3) 03/08/22 20:55 RDW Coeff of Jaennette 11.9 % (11.5-14.5) 03/08/22 20:55 Plt Count 202 K/uL (130-400) 03/08/22 20:55 MPV 9.2 fL (9.4-12.4) L 03/08/22 20:55 Immature Gran % (Auto) 2.3 % 03/08/22 20:55 Neut % (Auto) 65.6 % 03/08/22 20:55 Lymph % (Auto) 8.6 % 03/08/22 20:55 [place] % (Auto) 23.1 % 03/08/22 20:55 Eos % (Auto) 0.2 % 03/08/22 20:55 Baso % (Auto) 0.2 % 03/08/22 20:55 Neut # (Auto) 4.38 K/uL (1.4-6.5) 03/08/22 20:55 Lymph # (Auto) 0.57 K/uL (1.2-3.4) L 03/08/22 20:55 [place] # (Auto) 1.54 K/uL (0.24-0.82) H 03/08/22 20:55 Eos # (Auto) 0.01 K/uL (0-0.50) 03/08/22 20:55 Baso # (Auto) 0.01 K/uL (0-0.2) 03/08/22 20:55 Immature Gran # (Auto) 0.15 K/uL (0.00-0.02) H 03/08/22 20:55 PT 11.0 Seconds (9.0-12.0) 03/08/22 20:55 INR 1.0 (0.9-1.1) 03/08/22 20:55 APTT 27.7 Seconds (21.0-31.0) 03/08/22 20:55 PTT Ratio 1.0 03/08/22 20:55 Sodium 134 mmol/L (136-145) L 03/08/22 20:55 Potassium 4.3 mmol/L (3.5-5.1) 03/08/22 20:55 Chloride 97 mmol/L (98-107) L 03/08/22 20:55 Carbon Dioxide 30 mmol/L (21-32) 03/08/22 20:55 Anion Gap 7 (3-11) 03/08/22 20:55 BUN 22 mg/dl (6-23) 03/08/22 20:55 Creatinine 1.10 mg/dl (0.6-1.4) 03/08/22 20:55 Est Cr Clr Drug Dosing 56.8 ml/min 03/08/22 20:55 Est GFR ( Amer) 77.3 ml/min 03/08/22 20:55 Est GFR (Non-Af Amer) 66.7 ml/min 03/08/22 20:55 BUN/Creatinine Ratio 20.0 (10-20) 03/08/22 20:55 Glucose 129 mg/dl (70-99(Fasting)) H 03/08/22 20:55 Lactate 0.5 mmol/L (0.4-2.0) 03/08/22 23:15 Calcium 9.8 mg/dl (8.5-10.1) 03/08/22 20:55 Total Bilirubin 0.4 mg/dl (0.2-1.0) 03/08/22 20:55 AST 29 U/L (13-39) 03/08/22 20:55 ALT 36 U/L (7-52) 03/08/22 20:55 Alkaline Phosphatase 79 U/L (34-104) 03/08/22 20:55 Troponin I High Sens 4.2 pg/ml (0-20) 03/08/22 20:55 C-Reactive Protein 17.40 mg/dl (0-0.5) H 03/09/22 10:32 Total Protein 7.4 gm/dl (6.0-8.3) 03/08/22 20:55 Albumin 3.9 gm/dl (3.4-5.0) 03/08/22 20:55 Globulin 3.5 gm/dl (2.5-4.0) 03/08/22 20:55 Albumin/Globulin Ratio 1.1 (0.9-2) 03/08/22 20:55 Prostate Specific Ag < 0.008 ng/ml (0-4) 03/08/22 20:55 Procalcitonin 0.08 ng/ml (0-0.5) 03/09/22 10:32 TSH 3.837 uIu/ml (0.300-4.500) 03/08/22 20:55 Urine Color Yellow 03/09/22 01:58 Urine Appearance Clear (Clear) 03/09/22 01:58 Urine pH 6.5 (4.5-7.5) 03/09/22 01:58 Ur Specific [place] 1.020 (1.000-1.030) 03/09/22 01:58 Urine Protein Negative (Negative) 03/09/22 01:58 Urine Glucose (UA) Negative (Negative) 03/09/22 01:58 Urine Ketones Negative (Negative) 03/09/22 01:58 Urine Blood Negative (Negative) 03/09/22 01:58 Urine Nitrite Negative (Negative) 03/09/22 01:58 Urine Bilirubin Negative (Negative) 03/09/22 01:58 Urine Urobilinogen Negative (Negative) 03/09/22 01:58 Ur Leukocyte Esterase Negative (Negative) 03/09/22 01:58 SARS-CoV-2, RNA, NAAT NEGATIVE (NEGATIVE) 03/08/22 22:49 Impressions Lumbar Spine MRI 03/09/22 00:07 MR lumbar spine wo/w con CLINICAL HISTORY: 71 years-old Male with pain with fever, eval for infection. Acute low back pain with fever. History of prostate cancer. COMPARISON: MRI thoracic spine of same day, CT abdomen and pelvis and bone scan 03/12/2021 TECHNIQUE: Multiplanar, multi sequence MRI of the lumbar spine was performed without intravenous contrast. FINDINGS: Steel Analyst localizer images demonstrate no gross extraspinal abnormality. No abnormal enhancement. There are a few scattered nonenlarged periaortic retroperitoneal lymph nodes present. The study is motion degraded. No acute fracture, subluxation or endplate erosion. There is mild paraspinal edema of the mid to lower lumbar spinal the right which may represent a low-grade muscle strain. Urinary bladder is distended. Conus medullaris terminates at T12-L1. Normal signal within the thoracic spinal cord. No endplate erosions. Small inferior endplate Schmorl's node at L2 with mild marrow edema. T12-L1: Mild intervertebral disc space narrowing with spondylitic spurring and small circumferential annular disc bulge. Ligamentum flavum thickening with moderate facet arthrosis. No central canal or neural foraminal stenosis. L1-L2: Mild intervertebral disc space narrowing with spondylitic spurring and small circumferential annular disc bulge. Ligament of flavum thickening with moderate facet arthrosis. No central canal stenosis. Mild bilateral foraminal stenosis.. L2-L3: Mild spondylitic spurring with small circumferential annular disc bulge. Ligamentum flavum thickening with moderate facet arthrosis. The central canal is patent. Mild bilateral neural foraminal stenosis. L3-L4: Mild intervertebral disc space narrowing with small circumferential annular disc bulge and spondylitic spurring. Ligamentum flavum thickening with moderate facet arthrosis. Mild central canal stenosis, AP dimension of the thecal sac measuring 9 mm. Mild to moderate bilateral foraminal stenosis. L4-L5: [id number] intervertebral disc space narrowing with spondylitic spurring and small circumferential annular disc bulge. Small annular fissure centrally. 7 mm anterolisthesis with posterior disc space uncovering. Ligamentum flavum thickening with severe facet arthrosis. Severe central canal stenosis, AP dimension of the thecal sac measuring 5 mm. Severe narrowing of the lateral recesses. Moderate bilateral neural foraminal narrowing. L5-S1: Mild intervertebral disc space narrowing. Spondylitic spurring with small central disc protrusion measuring 8 mm transversely. Small annular fissu re. Flattening of the ventral thecal sac without significant central canal stenosis. The neural foramen are patent. Ligamentum flavum thickening with moderate facet arthrosis. IMPRESSION: 1. No acute fracture or evidence of discitis/osteomyelitis. 2. Small acute to subacute appearing Schmorl's node within the inferior endplate of L2. 3. Discogenic degeneration with facet arthrosis as above resulting in multilevel neural foraminal narrowing. 4. Severe central canal stenosis at L4-L5. 5. No abnormal enhancement. 6. Mild edema within the lower paraspinal musculature may represent a grade 1 muscle strain. ACT 112: Negative or not required by law. The above report was generated using voice recognition software. It may contain grammatical, syntax or spelling errors. Electronically signed by: Mike Jimenez M.D. 03/09/2022 9:11 AM Thoracic Spine MRI 03/09/22 00:07 MR thoracic spine wo/w con HISTORY: 71 years-old Male eval for infection acute back pain with fever COMPARISON: MRI lumbar spine of same day, bone scan 03/12/2021 TECHNIQUE: Multiplanar multisequence MRI of the thoracic spine was obtained both with and without use of 7.8 cc Gadavist FINDINGS: There is mostly mild multilevel intervertebral disc space narrowing with spondylitic spurring and small annular disc bulging throughout the thoracic spine. Posterior disc bulge with possible disc extrusion at T8-T9 narrows the AP dimension of the thecal sac to 9 mm causing mild central canal stenosis. Conus medullaris terminates at T12/L1. The central canal is otherwise patent. No high- grade neural foraminal narrowing identified. No acute fracture, subluxation or endplate erosion identified. The study is motion degraded. There is extensive soft tissue edema and enhancement within the deep paraspinal tissues of the upper to midthoracic spine extending into the interspinous tissues. These findings extend to the level of T1-T7 and are most pronounced at the T1-T4 levels. Additionally, there is enhancement of the posterior epidural tissues within this distribution. No epidural or paraspinal abscess identified. Dependent increased signal within lung bases suggest atelectasis versus pneumonia. Trace right pleural effusion. IMPRESSION: 1. Motion degraded exam. 2. There is a considerable amount of nonspecific deep tissue paraspinal and interspinous edema and enhancement involving the upper to midthoracic spine extending from T1-T7 with edema and enhancement also present within the posterior epidural tissues extending into the upper thoracic bilateral neural foramen. No epidural or paraspinal abscess identified. Follow-up is needed. 3. No acute fracture, bone marrow edema or marrow replacing process identified. 4. No evidence of discitis/osteomyelitis. 5. Bibasilar atelectasis versus pneumonia. Trace right pleural effusion. ACT 112: Negative or not required by law. The above report was generated using voice recognition software. It may contain grammatical, syntax or spelling errors. Electronically signed by: Mike Jimenez M.D. 03/09/2022 9:26 AM Chest X-Ray 03/09/22 01:51 XR chest 1V portable HISTORY: 71 years-old Male fever acute cough with fever COMPARISON: Chest radiograph 03/04/2022 TECHNIQUE: Portable AP view of the chest FINDINGS: Cardiac silhouette is enlarged. There are new bibasilar airspace opacities. No pneumothorax. Question trace pleural effusions. No overt pulmonary edema. Mild pulmonary vascular congestion. Degenerative changes of the shoulders and spine. IMPRESSION: 1. Cardiomegaly with pulmonary vascular congestion. 2. There are new bibasilar airspace opacities, left greater than right suspicious for pneumonia. ACT 112: Negative or not required by law. The above report was generated using voice recognition software. It may contain grammatical, syntax or spelling errors. Electronically signed by: Mike Jimenez M.D. 03/09/2022 8:50 AM Hospital Course (1) Back pain: 71yo male with PMHx of prostate cancer, hypothyroidism, HLD who presented with 1wk back pain. Has been to our ER 2-3x in the past few days. His is currently at [facility] for treatment of leg fracture with infection. Cervical/Thoracic Back Strain -Pt states pain began after sleeping in recliner of hospital with his at [facility] last week. No red flag symptoms. Did have slight, transient fever in ER that spontaneously resolved. Relatively low concern for osteomyelitis/discitis or met astatic prostate cancer -urine cx: +gamma strep not enterococcus; likely normal all, asymptomatic -blood cx no growth after 24 hours -Chest XR: new bibasilar airspace opacities -Thoracic MRI: No epidural or paraspinal abscess. No acute fx. No discitis/osteomyelitis. Bibasilar atelectasis versus pneumonia with trace R pleural effusion. Considerable amount of nonspecific deep tissue paraspinal and interspinous edema and enhancement involving the upper to midthoracic spine extending from T1-T7 with edema and enhancement also present within the posterior epidural tissues extending into the upper thoracic bilateral neural foramen. -Lumbar MRI: No acute fx or evidence of discitis/osteomyelitis. Multilevel neural foraminal narrowing. Severe central canal stenosis at L4-L5. Grade 1 muscle strain. -Treated pain with graduated pain meds: * Tylenol * Ketorolac * Tramadol-Cyclobenzaprine PRN, heat -Consulted spine surgery: likely muscle strain, okay for discharge -Continue outpatient pain control with tylenol/ibuprofen prn. Also has Flexeril and oxycodone from previous ER visits available. Prostate Cancer Hx of radiation treatment. Fairly aggressive disease with Sami 5 + 4. Radiation therapy in 05/2021. Stopped hormone treatment earlier this year due to side effects (low energy). - repeat PSA wnl - Encouraged f/u with radiation oncology or urology Hypothyroidism TSH was 2.7 in 2020. No signs/symptoms of hypo-/hyperthyroidism. - Repeat TSH wnl - Continue home Synthroid 62.5 mcg HLD - Continue home statin (2) Prostate cancer: (3) Hypothyroidism: (4) Hyperlipidemia: (5) DVT prophylaxis: Total Time Total Time Spent Total Time Spent (In Minutes): 30 Discharge Plan Discharge Items Patient Disposition: Home - Self-Care Reason For Visit: BACK PAIN/INJURY Discharge Diagnosis: cervical/thoracic muscle strain Activity: Per Instructions section Non-emergency contact: Primary Care Provider Call non-emergency contact if: you have any medication questions Follow-up/Referrals: Lelo Alfaro PA-C [Primary Care Provider] - Diet: Regular Addtl Attending Provider Instructions: You were admitted to the hospital for intractable cervical and thoracic back pain. Upon MRI imaging of your thoracic spine there was found to be a considerable amount of deep tissue edema/inflammation which was likely induced by trauma or overuse. Over the course of 24 to 48 hours your back pain improved greatly with mild to moderate pain medications. We did have you seen by our labor specialist Dr. Rosario who also stated that with regards to your cervical and thoracic pain this is likely due to a muscle strain. Going forward acutely refrain from any heavy lifting especially that incorporates the use of your back. You may use Tylenol/ibuprofen for pain relief as needed although you have not needed any pain medication since yesterday. It appears you also have some Flexeril and oxycodone at home from previous visits so may use that as needed as well. Please follow-up with your primary care provider in the next 1 to 2 weeks for further evaluation/treatment. Pending Studies at Discharge: No Stand-Alone Forms: My [facility], Smoking Cessation Medications and DC Order Prescriptions: Continued ascorbate calcium (vitamin C) 500 mg tablet 500 mg PO DAILY B Complex Plus Vitamin C [id number] mg capsule 1 cap PO DAILY Rx Instructions: give with food (meal/snack) naproxen 250 mg tablet 250 mg PO BID PRN (Reason: Pain) melatonin 5 mg capsule 5 mg PO HS PRN (Reason: Sleep) vitamin E (dl, acetate) 180 mg (400 unit) capsule 180 mg PO DAILY leuprolide (3 month) 22.5 mg syringe 22.5 mg subcut ONCE Qty: 1 0RF Rx Instructions: ICD 61 Patient Coming 07/24/2021 Eligard (3 month) 22.5 mg syringe 22.5 mg subcut ONCE Qty: 1 0RF Rx Instructions: ICD: C61 Patient coming 10/24/2021 levothyroxine [Synthroid] 125 mcg tablet 62.5 mcg PO QAM multivitamin Tablet 1 tab PO DAILY vitamin A 8,000 unit Capsule 8,000 unit PO DAILY flaxseed oil 1,000 mg Capsule 1,000 mg PO DAILY garlic 500 mg Capsule 500 mg PO DAILY lysine [L-Lysine] 500 mg Tablet 500 mg PO DAILY cholecalciferol (vitamin D3) [Vitamin D3] 1,000 unit Tablet,Chewable 1,000 unit PO DAILY Probiotic 3 billion cell Capsule 3 mmu cells PO DAILY cyclobenzaprine 5 mg tablet 5 mg PO TID PRN (Reason: muscle spasm) Qty: 9 0RF zinc acetate 50 mg (zinc) Capsule 50 mg PO DAILY magnesium chloride 64 mg Tablet,Delayed Release (Dr/Ec) 64 mg PO DAILY atorvastatin 20 mg tablet 20 mg PO DAILY oxycodone 5 mg tablet 5 mg PO Q6H PRN (Reason: pain) Qty: 12 0RF Rx Instructions: Initial Treatment Discharge Orders: Discharge Order (Routine); Ordered 03/10/22 Ordered By: Travis Sterling Admission Data Admit Date/Time: 03/09/22 03:53 Attending Provider: Charlene Morales Admit Provider: Jesus Alberto Fletcher Primary Care Provider: Lelo Alfaro Other Providers: Jesus Alberto Fletcher ; Felix Rosario Other Interventions: Discharge Summary Assessment (RN) Last Done: 03/10/22 12:03 Supervising Physician Co-Signing Physician Notes Resident Physician Supervision Note: I independently interviewed and examined the patient and verified the ulloa history and physical, reviewed labs and image studies and agree with resident findings and care plan. Resident Activity Tracking Resident Involvement: Resident Care Provided Care Provided: [facility]
== END 2022-03-10 13:35 | disposition home or self-care (01) ==
LOC: 4W 20:45 → ED 20:45 → SUATTDRO 03-09 03:53 → 4W 03-09 09:04